=== PATIENT | female | born 1990 | race Two or more races ===

== ENCOUNTER → 2021-02-24 | Emergency (ER) | payer MEDICAID, OTHER ==
[~2021-02-24] VITALS: Ht 182.9 cm; Wt 77.1 kg
[~2021-02-24] MED LIST: CYCL10TA9 PO; IBUP-1955 PO; ONDANSETRON 4 MG TAB.RAPDIS ONE; TRAMADOL HCL 50 MG TABLET ONE
[2021-02-24] MEDS: TRAMADOL HCL 50 MG TABLET PO ONE (22:48)
[2021-02-24] MEDS: ONDANSETRON 4 MG TAB.RAPDIS SL ONE (22:49)
[2021-02-24 22:50] LABS: BILIRUBIN,URINE NEGATIVE (NEGATIVE); COLOR,URINE YELLOW (YELLOW); LEUKOCYTE ESTERASE ,URINE SMALL (NEGATIVE); NITRITE, URINE NEGATIVE (NEGATIVE); PROTEIN,URINE NEGATIVE (NEGATIVE); UGLUCOSE NEGATIVE (NEGATIVE); UROBILINOGEN,URINE 0.2 EU/dL (0.2)
[2021-02-24 23:13] LABS: BACTERIA,URINE None seen /HPF (None Seen); RBC,URINE 0-2 /HPF (0-2); SQUAMOUS EPITHELIAL CELL,UR Few /HPF (None Seen)
--- NOTE | 2021-02-24 23:25 | NUR ---
TRANSPORTED TO CT
--- NOTE | 2021-02-25 00:12 | NUR ---
[facility] AT BEDSIDE
[2021-02-25 00:27] VITALS: BP 117/88
--- NOTE | 2021-02-25 00:28 | NUR ---
Patient discharged to home in stable condition. RX,Written and verbal after care instructions given. Patient verbalizes understanding of instruction.
== END | disposition home or self-care (01) ==
LOC: ER 21:25
DX: S40.212A Abrasion of left shoulder, initial encounter (principal); S09.8XXA Other specified injuries of head, initial encounter; Z88.0 Allergy status to penicillin; Z60.2 Problems related to living alone; Z79.899 Other long term (current) drug therapy; V49.49XA Driver injured in collision with other motor vehicles in traffic accident, initial encounter; Y93.89 Activity, other specified; Y92.488 Other paved roadways as the place of occurrence of the external cause; Y99.8 Other external cause status
CPT/HCPCS: 29105; 70450; 73030; 81001; 84703; 87086; 99285; Q0162

== ENCOUNTER 2025-04-14 14:47 | Emergency (ER) | payer MEDICAID ==
[~2025-04-14] VITALS: Ht 182.9 cm; Wt 93.0 kg
[~2025-04-14 14:47] MED LIST changes: -ONDANSETRON 4 MG TAB.RAPDIS ONE; -TRAMADOL HCL 50 MG TABLET ONE
[2025-04-14 15:00] VITALS: BP 126/84; TEMP 97.9; O2SAT 100
[2025-04-14] MEDS ORDERED: LIDOCAINE 2% 20 ML MDV ONE (16:00)
[2025-04-14] MEDS: LIDOCAINE /MPF 1% VIAL 5 ML VIAL IJ ONE (16:06)
== END 2025-04-14 16:39 | disposition home or self-care (01) ==
LOC: ER 14:53
DX: L03.032 Cellulitis of left toe (principal); Z88.0 Allergy status to penicillin; Z91.013 Allergy to seafood
CPT/HCPCS: 10060; 99282; J3490